=== PATIENT | female | born 1970 | race Caucasian/White ===

== ENCOUNTER 2017-01-13 14:54 | Emergency (ER) | payer BC ==
[2017-01-13 15:08] VITALS: BP 134/75; PULSE 72; TEMP 98.1; BMI 40.3
--- NOTE | 2017-01-13 15:40 | PDOC ---
History of Present Illness - General Chief Complaint: Headache Stated Complaint: EAR ACHE Time Seen by Provider: 01/13/17 15:24 History Source: Patient Exam Limitations: Language Barrier - History of Present Illness Initial Comments: 01/13/17 15: CC NASAL CONGESTION AND HEADACHE, 2NDARY TO SINUS CONGESTION 1 WEEK; LONG HX SAME WITH SINUS SURGERY NEXT WEEK Timing/Duration: reports: getting worse Severity: reports: severe Possible Cause: Yes: frequent episodes. No: smoke exposure Modifying Factors: improves with: other (NO BETTER TO ) Associated Symptoms: reports: nasal congestion, nasal drainage, sore throat. denies: cough, wheezing Past History - Past Medical History Allergies/Adverse Reactions: Allergies Allergy/AdvReac Type Severity Reaction Status Date / Time No Known Allergies Allergy Verified 01/13/17 15:04 Home Medications: Ambulatory Orders NK [No Known Home Medication] 01/13/17 Asthma: Yes GI Disorders: Yes (GERD) Other medical history: migraines - Family Disease History Family Disease History: Diabetes: Father, Heart Disease: Mother - Immunization History Immunization Up to Date: Yes - Psycho/Social/Smoking Cessation Hx Anxiety: No Suicidal Ideation: No Smoking Status: No Smoking History: Unknown if ever smoked Have you smoked in the past 12 months: No Number of Cigarettes Smoked Daily: 0 Information on smoking cessation initiated: No Hx Alcohol Use: No Drug/Substance Use Hx: No Substance Use Type: None Respiratory Specific PMHX - Complaint Specific PMHX Angina: No Bronchitis: Yes Pneumonia: No Pulmonary Embolus: No TB (Tuberculosis): No Review of Systems - Review of Systems Constitutional: Yes: Malaise. No: Chills, Fever HEENTM: Yes: Nose Congestion. No: Mouth Swelling Respiratory: Yes: Cough Cardiac (ROS): No: Symptoms Reported ABD/GI: No: Symptoms Reported : No: Symptoms Reported Musculoskeletal: No: Symptoms Reported *Physical Exam - Vital Signs Last Vital Signs Temp Pulse Resp BP Pulse Ox 98.1 F 72 18 134/75 100 01/13/17 15:04 01/13/17 15:04 01/13/17 15:04 01/13/17 15:04 01/13/17 15:04 - Physical Exam General Appearance: Yes: Appropriately Dressed, Apparent Distress HEENT: positive: Nasal Congestion, Rhinorrhea. negative: TMs Normal, Pharynx Normal, TM Bulging, TM Dull Neck: positive: Supple, Lymphadenopathy (R), Lymphadenopathy (L). negative: Tender, Rigid Respiratory/Chest: positive: Lungs Clear. negative: Chest Tender, Accessory Muscle Use, Wheezing Medical Decision Making - Medical Decision Making 01/13/17 15:39 WILL TREAT WITH AUGMENTIN ' ENCOURAGE USE OF NASAL STEROID/ FLONASE *DC/Admit/Observation/Transfer Diagnosis at time of Disposition: Chronic sinusitis Qualifiers: Sinusitis location: unspecified location Qualified Code(s): J32.9 - Chronic sinusitis, unspecified - Discharge Dispostion Disposition: HOME Condition at time of disposition: Stable Admit: No - Patient Instructions Additional Instructions: PLEASE KEEP APPOINTMET FOR SINUS SURGERY; SEE LOCAL MD THIS WEEK IF NO BETTER; USE FLONASE IN PAST; MOTRIN 400MG FOR PAIN
== END 2017-01-13 15:48 | disposition home or self-care (01) ==
LOC: JERFT 14:54
DX: J32.9 Chronic sinusitis, unspecified (principal)
CPT/HCPCS: 99281-25

== ENCOUNTER 2017-03-13 14:43 | Emergency (ER) | payer BC, OTHER ==
--- NOTE | 2017-03-13 15:07 | PDOC ---
History of Present Illness - General History Source: Patient Exam Limitations: No Limitations - History of Present Illness Initial Comments: 03/13/17 15:26 The patient is a 47 year old female with a PMHx of GERD, asthma who presents to the ED with low back pain since yesterday. The patient states that while at work , she lifted and moved a heavy box of magazines and immediately experienced sharp, stabbing pain in her back. She states the pain is intermittent. The pain is exacerbated by sitting or lying down, and alleviated by walking. She states that the pain wraps around her whole low back, and while she walks the pain radiates to the top of her legs, bilaterally. She reports that she took Aleve this morning with minimal relief. She reports she has had similar symptoms before, which was a strained muscle/spasm. She reports that she has had a disc herniation in the past, but the current pain feels different. She denies numbness, tingling, change in sensation. She denies fever, chills, nausea, vomiting, diarrhea. She denies chest pain, SOB. She denies urinary complaints. <Pauline Verma - Last Filed: 03/13/17 15:26> <Kirit Chaudhry - Last Filed: 03/13/17 15:48> - General Chief Complaint: Back Pain Stated Complaint: LOWER BACK PAIN Time Seen by Provider: 03/13/17 14:57 Past History <Pauline Verma - Last Filed: 03/13/17 15:26> - Past Medical History Asthma: Yes GI Disorders: Yes (GERD) - Family Disease History Family Disease History: Diabetes: Father, Heart Disease: Mother - Immunization History Immunization Up to Date: Yes - Psycho/Social/Smoking Cessation Hx Anxiety: No Suicidal Ideation: No Smoking Status: No Smoking History: Unknown if ever smoked Have you smoked in the past 12 months: No Number of Cigarettes Smoked Daily: 0 Hx Alcohol Use: No Drug/Substance Use Hx: No Substance Use Type: None <Kirit Chaudhry - Last Filed: 03/13/17 15:48> - Past Medical History Allergies/Adverse Reactions: Allergies Allergy/AdvReac Type Severity Reaction Status Date / Time No Known Allergies Allergy Verified 03/13/17 14:45 Home Medications: Ambulatory Orders Cyclobenzaprine HCl [Flexeril 10 mg] 10 mg PO TID #15 tablet 03/13/17 Levocetirizine Dihydrochloride 5 mg PO DAILY 03/13/17 Naproxen [Naprosyn] 375 mg PO BID #20 tablet 03/13/17 Omeprazole 20 mg PO DAILY 03/13/17 Ranitidine [Zantac -] 150 mg PO DAILY 03/13/17 Trauma Specific PMHX - Complaint Specific PMHX Back Injury: Yes (jan 12) <Kirit Chaudhry - Last Filed: 03/13/17 15:48> Review of Systems - Review of Systems Able to Perform ROS?: Yes Comments:: 03/13/17 15:27 CONSTITUTIONAL: Absent: fever, chills, diaphoresis, generalized weakness, malaise, loss of appetite HEENT: Absent: rhinorrhea, nasal congestion, throat pain, throat swelling, difficulty swallowing, mouth swelling, ear pain, eye pain, visual changes CARDIOVASCULAR: Absent: chest pain, syncope, palpitations, irregular heart rate, lightheadedness , peripheral edema RESPIRATORY: Absent: cough, shortness of breath, dyspnea with exertion, orthopnea, wheezing, stridor, hemoptysis GASTROINTESTINAL: Absent: abdominal pain, abdominal distension, nausea, vomiting, diarrhea, constipation, melena, hematochezia GENITOURINARY: Absent: dysuria, frequency, urgency, hesitancy, hematuria, flank pain, genital pain MUSCULOSKELETAL: Present: low back pain Absent: arthralgia, joint swelling SKIN: Absent: rash, itching, pallor HEMATOLOGIC/IMMUNOLOGIC: Absent: easy bleeding, easy bruising, lymphadenopathy, frequent infections ENDOCRINE: Absent: unexplained weight gain, unexplained weight loss, heat intolerance, cold intolerance NEUROLOGIC: Absent: headache, focal weakness or paresthesias, dizziness, unsteady gait, seizure, mental status changes, bladder or bowel incontinence PSYCHIATRIC: Absent: anxiety, depression, suicidal or homicidal ideation, hallucinations. 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 She has pain and stiffness today. No radicular symptoms. Normal neurologic exam Toradol administered with good relief. Pain is improved and the patient is more mobile. We'll continue on anti-inflammatory and muscle relaxant, rest at home, avoid sitting, and follow-up with back specialist if the pain persists. Fully ambulatory and in no significant pain or other discomfort upon discharge to follow-up as directed <Kirit Chaudhry - Last Filed: 03/13/17 15:48> *DC/Admit/Observation/Transfer - Attestations Scribe Attestion: 03/13/17 15:27 Documentation prepared by Pauline Verma, acting as medical record librarian for Kirit Sanabria MD. <Pauline Verma - Last Filed: 03/13/17 15:26> - Discharge Dispostion Admit: No <Kirit Chaudhry - Last Filed: 03/13/17 15:48> Diagnosis at time of Disposition: Low back strain Qualifiers: Encounter type: initial encounter Qualified Code(s): S39.012A - Strain of muscle, fascia and tendon of lower back, initial encounter - Discharge Dispostion Disposition: HOME Condition at time of disposition: Improved - Prescriptions Prescriptions: Cyclobenzaprine HCl [Flexeril 10 mg] 10 mg PO TID #15 tablet Naproxen [Naprosyn] 375 mg PO BID #20 tablet - Referrals Referrals: Spencer King MD [Staff Physician] - 1 week - Patient Instructions Printed Discharge Instructions: DI for Low Back Pain - Post Discharge Activity Work/School Note: Back to Work
[2017-03-13 15:23] VITALS: BP 123/65; PULSE 66; TEMP 98.4; BMI 40.3
[2017-03-13] MEDS ORDERED: KETOROLAC TROMETHAMINE 60 MG/2 ML VIAL ONE (15:25)
[2017-03-13] MEDS: KETOROLAC TROMETHAMINE 60 MG/2 ML VIAL IM ONE (15:28)
== END 2017-03-13 16:01 | disposition home or self-care (01) ==
LOC: FER 14:43
PROC: 3E0233Z Introduction of Anti-inflammatory into Muscle, Percutaneous Approach (ICD-10-PCS; principal; 2017-03-13)
DX: S39.012A Strain of muscle, fascia and tendon of lower back, initial encounter (principal); X50.0XXA Overexertion from strenuous movement or load, initial encounter; Y93.89 Activity, other specified; Y92.242 Post office as the place of occurrence of the external cause; Y99.0 Civilian activity done for income or pay; K21.9 Gastro-esophageal reflux disease without esophagitis; J45.909 Unspecified asthma, uncomplicated
CPT/HCPCS: 99283-25

== ENCOUNTER 2017-06-08 09:34 | Emergency (ER) | payer BC ==
[2017-06-08 09:40] VITALS: BP 121/79; PULSE 66; TEMP 98.2; BMI 40.3
--- NOTE | 2017-06-08 10:22 | PDOC ---
History of Present Illness - General Chief Complaint: Ear Problem Stated Complaint: EAR PROBLEM Time Seen by Provider: 06/08/17 10:10 History Source: Patient Exam Limitations: No Limitations - History of Present Illness Initial Comments: 06/08/17 11:42 47 yr female with c/o left sided facial tenderness with swelling and left ear pain. Pt has history of chronic sinusitus, states the pain is the same as previous . pt denies fever or chills. Associated Symptoms: reports: denies symptoms Past History - Past Medical History Allergies/Adverse Reactions: Allergies Allergy/AdvReac Type Severity Reaction Status Date / Time No Known Allergies Allergy Verified 06/08/17 09:37 Home Medications: Ambulatory Orders Levocetirizine Dihydrochloride 5 mg PO DAILY 03/13/17 Omeprazole 20 mg PO DAILY 03/13/17 Amox-Tr/K Cl [Augmentin - 875Mg Tablet] 1 tab PO BID #20 tablet 06/08/17 Asthma: Yes GI Disorders: Yes (GERD) Other medical history: sinus problems - Family Disease History Family Disease History: Diabetes: Father, Heart Disease: Mother - Immunization History Immunization Up to Date: Yes - Psycho/Social/Smoking Cessation Hx Anxiety: No Suicidal Ideation: No Smoking Status: No Smoking History: Unknown if ever smoked Have you smoked in the past 12 months: No Number of Cigarettes Smoked Daily: 0 Information on smoking cessation initiated: No Hx Alcohol Use: No Drug/Substance Use Hx: No Substance Use Type: None Review of Systems - Review of Systems Able to Perform ROS?: Yes Is the patient limited Syrian proficient: No Constitutional: No: Symptoms Reported HEENTM: Yes: See HPI Respiratory: No: Symptoms reported Cardiac (ROS): No: Symptoms Reported ABD/GI: No: Symptoms Reported *Physical Exam - Vital Signs Last Vital Signs Temp Pulse Resp BP Pulse Ox 98.2 F 66 18 121/79 100 06/08/17 09:38 06/08/17 09:38 06/08/17 09:38 06/08/17 09:38 06/08/17 09:38 - Physical Exam General Appearance: Yes: Nourished, Appropriately Dressed HEENT: positive: EOMI, LINDEN, TMs Normal, Nasal Congestion, Sinus Tenderness ( left side maxilary ) Neck: positive: Supple Respiratory/Chest: positive: Lungs Clear, Normal Breath Sounds Cardiovascular: positive: Regular Rhythm, Regular Rate Musculoskeletal: positive: Normal Inspection Extremity: positive: Normal Capillary Refill, Normal Inspection, Normal Range of Motion Integumentary: positive: Normal Color, Dry, Warm Neurologic: positive: Fully Oriented, Alert, Normal Mood/Affect, Normal Response , Motor Strength 04/04 Medical Decision Making - Medical Decision Making 06/08/17 11:46 cc: left ear pain with facial tenderness and swelling, nasal congestion will treat with Augmentin for 10 days pt states this has helped in the past. will folllow up with her ENT this week *DC/Admit/Observation/Transfer Diagnosis at time of Disposition: Sinusitis - Discharge Dispostion Disposition: HOME Condition at time of disposition: Stable - Prescriptions Prescriptions: Amox-Tr/K Cl [Augmentin - 875Mg Tablet] 1 tab PO BID #20 tablet - Referrals Referrals: STAFF,NOT ON [Primary Care Provider] - - Patient Instructions Additional Instructions: follow with your ENT this week take the medication as prescribed
== END 2017-06-08 10:24 | disposition home or self-care (01) ==
LOC: JERFT 09:34
DX: J32.0 Chronic maxillary sinusitis (principal)
CPT/HCPCS: 99281-25

== ENCOUNTER 2018-03-24 19:48 | Emergency (ER) | payer BC ==
[2018-03-24 20:07] VITALS: BP 129/64; PULSE 82; TEMP 98; BMI 40.3
[2018-03-24] MEDS ORDERED: ALBUTEROL SO4 2.5/IPRATROPIUM 0.5 INH SOL 3 ML VIAL.NEB. NEB ONE ×2 (20:07→20:20)
--- NOTE | 2018-03-24 20:07 | PDOC ---
Rapid Medical Evaluation Chief Complaint: Asthma Time Seen by Provider: 03/24/18 20:05 Medical Evaluation: Allergies Allergy/AdvReac Type Severity Reaction Status Date / Time No Known Allergies Allergy Verified 01/23/18 16:41 03/24/18 20:05 I have performed a brief in-person evaluation of this patient. The patient presents with a chief complaint of non productive coughing x 4 days with chest tightness States using pump with no relief. Denies fever or chills Pertinent physical exam finding are lungs clear bilaterally, no wheezing noted heart s1s 1 I have ordered the following: ekg ordered, neb ordered The patient will proceed to the ED for further evaluation.
[2018-03-24] MEDS ORDERED: predniSONE 20 MG TABLET (UD) PO ONE (20:34)
--- NOTE | 2018-03-24 20:40 | PDOC ---
History of Present Illness - General Chief Complaint: Asthma Stated Complaint: ASTHMA Time Seen by Provider: 03/24/18 20:05 History Source: Patient Past History - Past Medical History Allergies/Adverse Reactions: Allergies Allergy/AdvReac Type Severity Reaction Status Date / Time No Known Allergies Allergy Verified 01/23/18 16:41 Home Medications: Ambulatory Orders Prednisone [Deltasone] 20 mg PO DAILY #8 tablet 03/24/18 Asthma: Yes COPD: No GI Disorders: Yes (GERD) - Family Disease History Family Disease History: Diabetes: Father, Heart Disease: Mother - Immunization History Immunization Up to Date: Yes - Suicide/Smoking/Psychosocial Hx Smoking Status: No Smoking History: Never smoked Have you smoked in the past 12 months: No Number of Cigarettes Smoked Daily: 0 Information on smoking cessation initiated: No Hx Alcohol Use: No Drug/Substance Use Hx: No Substance Use Type: None Respiratory Specific PMHX - Complaint Specific PMHX Angina: No Bronchitis: Yes Pneumonia: No Pulmonary Embolus: No TB (Tuberculosis): No Review of Systems - Review of Systems Constitutional: No: Chills, Fever Respiratory: Yes: Cough, Shortness of Breath, Wheezing *Physical Exam - Vital Signs Last Vital Signs Temp Pulse Resp BP Pulse Ox 98.0 F 82 18 129/64 98 03/24/18 20:05 03/24/18 20:05 03/24/18 20:05 03/24/18 20:05 03/24/18 20:05 - Physical Exam General Appearance: Yes: Appropriately Dressed. No: Apparent Distress HEENT: positive: Normal Voice Neck: positive: Supple. negative: Lymphadenopathy (R), Lymphadenopathy (L) Respiratory/Chest: positive: Lungs Clear, Normal Breath Sounds. negative: Respiratory Distress Cardiovascular: positive: Regular Rate, S1, S2 Integumentary: positive: Dry, Warm Neurologic: positive: Fully Oriented, Alert, Normal Mood/Affect ED Treatment Course - Medications Given in the ED: ED Medications Discontinued Medications Generic Name Dose Route Start Last Admin Trade Name Freq PRN Reason Stop Dose Admin Albuterol/Ipratropium 1 amp 03/24/18 20:07 03/24/18 20:24 Duoneb - NEB 03/24/18 20:08 1 amp ONCE ONE Administration Medical Decision Making - Medical Decision Making 03/24/18 20:34 48-year-old female, history of asthma, no recent admissions and no history of intubations, uses pump and neb machine at home, here with dry cough with chest tightness for 4 days. No CP, wheezing, fever or chills. Using pump with no relief. Patient well-appearing and stable with clear lungs. Nebs and prednisone in progress, will reassess 03/24/18 21:06 Pt better w/ nebs. Chest/lungs remains clear. Able to ambulate without sob. Stable for dc w/ pred burst and pmd f/u *DC/Admit/Observation/Transfer Diagnosis at time of Disposition: Asthma flare Qualifiers: Asthma severity: mild Asthma persistence: unspecified Qualified Code(s): J45.901 - Unspecified asthma with (acute) exacerbation - Discharge Dispostion Disposition: HOME Condition at time of disposition: Improved - Prescriptions Prescriptions: Prednisone [Deltasone] 20 mg PO DAILY #8 tablet - Referrals - Patient Instructions Printed Discharge Instructions: Asthma -- Adult Additional Instructions: Take medications as directed and follow up with your PMD as needed - Post Discharge Activity Forms/Work/School Notes: Back to Work
[2018-03-24] MEDS ORDERED: predniSONE 20 MG TABLET (UD) ONE (20:50)
== END 2018-03-24 21:08 | disposition home or self-care (01) ==
LOC: JERFT 19:48
PROC: 3E0F7GC Introduction of Other Therapeutic Substance into Respiratory Tract, Via Natural or Artificial Opening (ICD-10-PCS; principal; 2018-03-24)
DX: J45.901 Unspecified asthma with (acute) exacerbation (principal)
CPT/HCPCS: 99281-25

== ENCOUNTER 2018-04-03 17:58 | Emergency (ER) | payer BC ==
[2018-04-03 18:23] VITALS: BP 127/55; PULSE 100; TEMP 98.9; BMI 40.3
[2018-04-03] MEDS ORDERED: ACETAMINOPHEN 500 MG TABLET (FP) PO ONE (18:42)
[2018-04-03] MEDS ORDERED: ACETAMINOPHEN 500 MG TABLET (FP) ONE (18:58)
--- NOTE | 2018-04-03 19:15 | PDOC ---
History of Present Illness - General History Source: Patient Exam Limitations: No Limitations - History of Present Illness Initial Comments: 04/03/18 19:33 The patient is a 48 year old female who presents to the emergency department complaining of right arm and right ankle pain since 330pm. 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 She reports landing on her right arm. She states she feels like she twisted her ankle, but denies hearing any popping or cracking. The patient denies loss of consciousness and head trauma. The patient denies chest pain, shortness of breath, headache, and dizziness. Denies fevers, chills, nausea, vomiting, diarrhea, and constipation. Denies dysuria, frequency, urgency, and hematuria. PAST MEDICAL HISTORY: GERD, migraines, asthma, left ankle fracture, finger fracture, and chronic sinusitis PAST SURGICAL HISTORY: Patient denies. FAMILY HISTORY: no pertinent history SOCIAL HISTORY: Pt lives with family and is employed. Occasional alcohol use. No reported cigarette or drug use. MEDICATIONS: reviewed ALLERGIES: As per nursing notes ROS General: No fevers or chills, no weakness, no weight loss HEENT: No change in vision. No sore throat,. No ear pain Cardiovascular: No chest pain or shortness of breath Respiratory: No cough, or wheezing. Gastrointestinal: no nausea, vomiting, diarrhea or constipation, No rectal bleeding Genitourinary: No dysuria, hematuria, or frequency Musculoskeletal: No joint or muscle pain or swelling Extremities: (+)Right arm pain. (+)Right ankle pain. Neurologic: No headache, vertigo, dizziness or loss of consciousness Psychiatric: nor depression Skin: No rashes or easy bruising Endocrine: no increased thirst or abnormal weight change Allergic: no skin or latex allergy All other systems reviewed and normal PE GENERAL: The patient is awake, alert, and fully oriented, in no acute distress. HEAD: Normal with no signs of trauma. EYES: Pupils equal, round and reactive to light, extraocular movements intact, sclera anicteric, conjunctiva clear. EXTREMITIES: (+) Small abrasion on right forearm, no bleeding. (+) Right ankle tenderness and swelling over lateral malleolus . (+) Mild tenderness over base of the fifth. Neurovascularly intact. NEUROLOGICAL: Normal speech, normal gait. PSYCH: Normal mood, normal affect. SKIN: Warm, Dry, normal turgor, no rashes or lesions noted. <Lindsey Abad - Last Filed: 04/03/18 19:33> - General History Source: Patient Exam Limitations: No Limitations - History of Present Illness Initial Comments: A portion of this note was documented by scribe services under my direction. I have reviewed the details of the note, within reason, and agree with the documentation. The case summary and management plan written by me. 04/03/18 19:38 Assessment and plan: This is a 40-year-old female who twisted her right ankle and scraped her right forearm. Patient has swelling of the lateral portion of the ankle but no deformity. Ankle and foot x-ray ordered Patient given pain medication Patient's forearm abrasion cleaned and Band-Aid applied it is superficial enough that it does not require anything more than a Band-Aid 04/03/18 19:55 Right ankle and foot x-ray no acute fracture dislocation or pathology ankle: Foot x-ray reviewed by me. Assessment and plan: This is a 48-year-old female who twisted her right ankle. 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 Patient x-rays negative for any fracture or acute pathology. Patient given air cast 04/03/18 20:04 Patient given off from work through of next week <Mignon Montanez I - Last Filed: 04/03/18 20:06> - General Chief Complaint: Injury Stated Complaint: RIGHT ARM & ANKLE INJURY Time Seen by Provider: 04/03/18 19:13 Past History <Lindsey Abad - Last Filed: 04/03/18 19:33> - Past Medical History Asthma: Yes COPD: No GI Disorders: Yes (GERD) Other medical history: FX LEFT ANKLE, FX FINGERS - Family Disease History Family Disease History: Diabetes: Father, Heart Disease: Mother - Immunization History Immunization Up to Date: Yes - Suicide/Smoking/Psychosocial Hx Smoking Status: No Smoking History: Never smoked Have you smoked in the past 12 months: No Number of Cigarettes Smoked Daily: 0 Hx Alcohol Use: Yes (OCCASIONAL) Drug/Substance Use Hx: No Substance Use Type: None <Mignon Montanez I - Last Filed: 04/03/18 20:06> - Past Medical History Allergies/Adverse Reactions: Allergies Allergy/AdvReac Type Severity Reaction Status Date / Time No Known Allergies Allergy Verified 04/03/18 18:10 Home Medications: Ambulatory Orders Prednisone [Deltasone] 20 mg PO DAILY #8 tablet 03/24/18 Albuterol Sulfate Inhaler - [Ventolin Hfa Inhaler -] 1 - 2 inh PO Q4H PRN Loratadine [Claritin] 10 mg PO DAILY 04/03/18 Omeprazole 40 mg PO DAILY 04/03/18 Ranitidine HCl [Zantac] 300 mg PO DAILY 04/03/18 Trauma Specific PMHX - Complaint Specific PMHX Back Injury: Yes (jan 12) <Mignon Montanez I - Last Filed: 04/03/18 20:06> *Physical Exam - Vital Signs Last Vital Signs Temp Pulse Resp BP Pulse Ox 98.9 F 100 H 18 127/55 98 04/03/18 17:59 04/03/18 17:59 04/03/18 17:59 04/03/18 17:59 04/03/18 17:59 <Lindsey Abad - Last Filed: 04/03/18 19:33> - Vital Signs Last Vital Signs Temp Pulse Resp BP Pulse Ox 98.9 F 100 H 18 127/55 98 04/03/18 17:59 04/03/18 17:59 04/03/18 17:59 04/03/18 17:59 04/03/18 17:59 <Mignon Montanez I - Last Filed: 04/03/18 20:06> ED Treatment Course - Medications Given in the ED: ED Medications Discontinued Medications Generic Name Dose Route Start Last Admin Trade Name Freq PRN Reason Stop Dose Admin Acetaminophen 1,000 mg 04/03/18 18:42 04/03/18 19:00 Tylenol - PO 04/03/18 18:43 1,000 mg ONCE ONE Administration <Lindsey Abad - Last Filed: 04/03/18 19:33> - Medications Given in the ED: ED Medications Discontinued Medications Generic Name Dose Route Start Last Admin Trade Name Freq PRN Reason Stop Dose Admin Acetaminophen 1,000 mg 04/03/18 18:42 04/03/18 19:00 Tylenol - PO 04/03/18 18:43 1,000 mg ONCE ONE Administration <Mignon Montanez I - Last Filed: 04/03/18 20:06> *DC/Admit/Observation/Transfer - Attestations Scribe Attestion: Documentation prepared by Lindsey Abad, acting as veterinary medical officer for Mignon Montanez MD. <Lindsey Abad - Last Filed: 04/03/18 19:33> - Discharge Dispostion Admit: No <Mignon Montanez I - Last Filed: 04/03/18 20:06> Diagnosis at time of Disposition: Moderate right ankle sprain Qualifiers: Encounter type: initial encounter Qualified Code(s): S93.401A - Sprain of unspecified ligament of right ankle, initial encounter Abrasion of right forearm Qualifiers: Encounter type: initial encounter Qualified Code(s): S50.811A - Abrasion of right forearm, initial encounter - Discharge Dispostion Disposition: HOME Condition at time of disposition: Good - Referrals Referrals: Adan Gonzalez MD [Staff Physician] - - Patient Instructions Additional Instructions: For the pain take ibuprofen or Aleve or Tylenol as directed by the bottle. Wear your air cast for comfort while awake you can take it off at night when you sleep or also for bathing or showering. Return to the emergency department immediately with ANY new, persistent or worsening symptoms. Continue any medications as previously prescribed by your physician. You should follow up with your primary doctor as soon as possible regarding today's emergency department visit. . Please make sure your doctor reviews the results of your emergency evaluation. Thank you for coming to the Emergency Department today for your care. It was a pleasure to see you today. Please note that your evaluation is INCOMPLETE until you follow-up with your doctor. - Post Discharge Activity Forms/Work/School Notes: Back to Work
[2018-04-03] MEDS ORDERED: DIPHTH,PERTUSS(ACELL),TET 0.5 ML DISP.SYRIN IM ONE (20:01)
== END 2018-04-03 20:12 | disposition home or self-care (01) ==
LOC: FER 17:58
PROC: 2W3QX1Z Immobilization of Right Lower Leg using Splint (ICD-10-PCS; principal; 2018-04-03)
DX: S93.401A Sprain of unspecified ligament of right ankle, initial encounter (principal); S50.811A Abrasion of right forearm, initial encounter; V82.6XXA Occupant of streetcar injured by fall from streetcar, initial encounter; Y93.89 Activity, other specified; Y92.410 Unspecified street and highway as the place of occurrence of the external cause
CPT/HCPCS: 73610-TC-RT-FY; 73630-TC-RT-FY; 90715; 99282-25

== ENCOUNTER 2018-07-31 23:55 | Emergency (ER) | payer BC ==
[2018-08-01 00:04] VITALS: BP 121/65; PULSE 88; TEMP 98.5; BMI 40.3
--- NOTE | 2018-08-01 00:06 | PDOC ---
History of Present Illness - General Chief Complaint: Edema Stated Complaint: SWOLLEN LEG Time Seen by Provider: 08/01/18 00:00 History Source: Patient Exam Limitations: No Limitations - History of Present Illness Initial Comments: 08/01/18 00:52 Mr Corado is a 48 yo F presenting to the ER with a complaint of left leg swelling This has been present for the past 4 days No associated fever, skin changes, rash, erythema. Patient actually denies pain to the calf or the foot. She notes the swelling comes and goes. 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 Patient denies recent travel. Patient denies chest pain, shortness of breath, palpitations, focal weakness or numbness. Patient denies prior episodes of this. Patient tells me that she had an echo approximately one year ago which demonstrated normal ejection fraction (I do not have those results available for review). She denies history of heart failure. PAST MEDICAL HISTORY: GERD, migraines, asthma, left ankle fracture, finger fracture, and chronic sinusitis PAST SURGICAL HISTORY: Patient denies. FAMILY HISTORY: non contributory SOCIAL HISTORY: Currently unemployed. Occasional alcohol use. No reported cigarette or drug use. MEDICATIONS: reviewed ALLERGIES: As per nursing notes ROS: GENERAL/CONSTITUTIONAL: No: fever, chills, weakness, loss of appetite. HEAD, EYES, EARS, NOSE AND THROAT: No: change in vision, ear pain, discharge, sore throat, throat swelling. CARDIOVASCULAR: No: chest pain, lightheadedness, palpitations, syncope RESPIRATORY: No: cough, shortness of breath, wheezing, hemoptysis, stridor. GASTROINTESTINAL: No: nausea, vomiting, diarrhea, abdominal cramping, rectal bleeding, constipation. GENITOURINARY: No: dysuria, hematuria, frequency, urgency, flank pain. MUSCULOSKELETAL: No: back pain, neck pain, joint pain, muscle swelling or pain SKIN: No: lesions, pallor, rash or easy bruising. NEUROLOGIC: No: headache, vertigo, paresthesias, weakness ENDOCRINE: No: unexplained weight gain or loss HEMATOLOGIC/LYMPHATIC: No: anemia, easy bleeding, swelling nodes. PE: GENERAL: The patient is in no acute distress. HEAD: Normal EYES: PERRLA, EOMI, sclera anicteric, conjunctiva clear. ENT: Ears normal, nares patent, oropharynx clear without exudates. Moist mucous membranes. NECK: Normal range of motion, supple LUNGS: Breath sounds equal, clear to auscultation bilaterally. HEART:Regular rate and rhythm, normal S1 and S2 without murmur ABDOMEN: Soft, nontender EXTREMITIES: Normal range of motion. left lower extremity slightly larger than the right, no pitting edema No calf tenderness No rashes Ann's sign negative NEUROLOGICAL: Cranial nerves II through XII grossly intact. Normal speech. No focal neurological deficits. MUSCULOSKELETAL: no deformities noted SKIN: Warm, Dry, normal turgor, no rashes or lesions noted. 08/01/18 01:33 Past History - Past Medical History Allergies/Adverse Reactions: Allergies Allergy/AdvReac Type Severity Reaction Status Date / Time No Known Allergies Allergy Verified 07/31/18 23:57 Home Medications: Ambulatory Orders Prednisone [Deltasone] 20 mg PO DAILY #8 tablet 03/24/18 Albuterol Sulfate Inhaler - [Ventolin Hfa Inhaler -] 1 - 2 inh PO Q4H PRN Loratadine [Claritin] 10 mg PO DAILY 04/03/18 Omeprazole 40 mg PO DAILY 04/03/18 Ranitidine HCl [Zantac] 300 mg PO DAILY 04/03/18 Asthma: Yes COPD: No GI Disorders: Yes (GERD) - Family Disease History Family Disease History: Diabetes: Father, Heart Disease: Mother - Immunization History Immunization Up to Date: Yes - Suicide/Smoking/Psychosocial Hx Smoking Status: No Smoking History: Never smoked Have you smoked in the past 12 months: No Number of Cigarettes Smoked Daily: 0 Information on smoking cessation initiated: No Hx Alcohol Use: No Drug/Substance Use Hx: No Substance Use Type: None *Physical Exam - Vital Signs Last Vital Signs Temp Pulse Resp BP Pulse Ox 98.5 F 88 18 121/65 95 07/31/18 23:57 07/31/18 23:57 07/31/18 23:57 07/31/18 23:57 07/31/18 23:57 Medical Decision Making - Medical Decision Making 08/01/18 01:38 Pt presents to the ER with a complaint of leg swelling She is concerned about DVT I doubt DVT Will do duplex No evidence on examination of arterial occlusion Doubt heart failure based on echo from last year and swelling limited to left side Suspect dependent edema Will ask pt to try leg elevation, compression stockings Pt to follow up with PMD within 2-3 business days Clinical Impression: lower extremity edema, initial presentation *DC/Admit/Observation/Transfer Diagnosis at time of Disposition: Lower extremity edema - Discharge Dispostion Disposition: HOME Condition at time of disposition: Stable Decision to Admit order: No - Referrals - Patient Instructions Printed Discharge Instructions: DI for Dependent Edema, DI for Peripheral Edema , Unilateral Additional Instructions: Ms. Corado Thank you for coming in to the ER today Please be sure to follow up with your primary care physician within 2-3 business days Please elevate your leg when you are sitting or in bed You can try to wear compression stocking as well Return to the ER for any other concerns or complaints - Post Discharge Activity
== END 2018-08-01 02:10 | disposition home or self-care (01) ==
LOC: FER 23:55
DX: M79.89 Other specified soft tissue disorders (principal)
CPT/HCPCS: 93971-TC; 99281-25; 99282-25

== ENCOUNTER 2018-11-05 11:21 | Emergency (ER) | payer BC ==
[2018-11-05 11:31] VITALS: BP 144/90; PULSE 78; TEMP 97.7; BMI 39.8
[2018-11-05] MEDS ORDERED: NAPROXEN 500 MG TABLET (FP) PO ONE (12:11)
--- NOTE | 2018-11-05 12:11 | PDOC ---
History of Present Illness - General Chief Complaint: Back Pain Stated Complaint: BACK PAIN Time Seen by Provider: 11/05/18 11:49 History Source: Patient Exam Limitations: No Limitations - History of Present Illness Initial Comments: 11/05/18 12:06 CHIEF COMPLAINT: Lower back pain HISTORY OF PRESENT ILLNESS:48-year-old woman past medical history with lower back pain presents emergency Department with left-sided lower back pain radiating down the back of her left leg. She denies any numbness or tingling to her lower extremities, continence of bladder or bowel, urinary retention, saddle anesthesia, foot drop or history of IV drug use or cancer. Patient states the pain improves with physical activity and worsens after extended periods of rest. REVIEW OF SYSTEMS: GENERAL: Afebrile, denies any weakness RESPIRATORY: No cough, wheezing, or hemoptysis. CARDIAC: No chest pain or shortness of breath MUSCULOSKELETAL: Pain to generalized lower back. No point tenderness. Pain worse on left than right. SKIN : No erythema, no bruising, no deformity. GI/: Denies any abdominal pain, no urinary difficulty, incontinence or urinary retention. RECTAL: Denies any difficulty this A.m. NEUROLOGICAL: Denies any numbness or tingling. No neurosensory deficits. PHYSICAL EXAM: GENERAL: The patient is awake, alert, and fully oriented, in no acute distress. RESPIRATORY: Lungs clear bilaterally, no rhonchi wheezes or crackles CARDIAC: S1-S2 audible, no murmur rub or gallop MUSCULOSKELETAL: Pain to generalized lower back, nonradiating, no tingling or sensory deficit. Less than 2 second cap refill, +2 pedal pulses. No spinal point tenderness. Normal reflexive and no deficits to sensation or strength. GI/: Abdomen soft, nontender, nondistended. No rebound tenderness. No masses palpable. RECTAL: Deferred patient with no neurological findings SKIN: Warm, Dry, normal turgor, no erythema, no edema no bruising. Past History - Past Medical History Allergies/Adverse Reactions: Allergies Allergy/AdvReac Type Severity Reaction Status Date / Time No Known Allergies Allergy Verified 11/05/18 11:27 Home Medications: Ambulatory Orders Albuterol Sulfate Inhaler - [Ventolin Hfa Inhaler -] 1 - 2 inh PO Q4H PRN Loratadine [Claritin] 10 mg PO DAILY 04/03/18 Omeprazole 40 mg PO DAILY 04/03/18 Ranitidine HCl [Zantac] 300 mg PO DAILY 04/03/18 Asthma: Yes COPD: No GI Disorders: Yes (GERD) - Family Disease History Family Disease History: Diabetes: Father, Heart Disease: Mother - Immunization History Immunization Up to Date: Yes - Suicide/Smoking/Psychosocial Hx Smoking Status: No Smoking History: Unknown if ever smoked Have you smoked in the past 12 months: No Number of Cigarettes Smoked Daily: 0 Hx Alcohol Use: No Drug/Substance Use Hx: No Substance Use Type: None Trauma Specific PMHX - Complaint Specific PMHX Back Injury: Yes (jan 12) *Physical Exam - Vital Signs Last Vital Signs Temp Pulse Resp BP Pulse Ox 97.7 F 78 18 144/90 98 11/05/18 11:29 11/05/18 11:29 11/05/18 11:29 11/05/18 11:29 11/05/18 11:29 Moderate Sedation - Procedure Monitoring Vital Signs: Procedure Monitoring Vital Signs Temperature 97.7 F 11/05/18 11:29 Pulse Rate 78 11/05/18 11:29 Respiratory Rate 18 11/05/18 11:29 Blood Pressure 144/90 11/05/18 11:29 O2 Sat by Pulse Oximetry (%) 98 11/05/18 11:29 Medical Decision Making - Medical Decision Making 11/05/18 12:08 A/P: 48-year-old woman with acute on chronic lower back pain No bony tenderness to C-spine or bones of the pelvis Able to perform straight leg raises without difficulty Able to ambulate with steady gait Neurovascular status intact Urinalysis, urine culture, urine , Naprosyn 11/05/18 14:01 Urinalysis reveals 4+ ketones, 1+ bilirubin 1+ protein. Negative for leuk esterase or nitrites. Patient's symptoms have improved with administration of Naprosyn. I will discharge the patient home to follow-up with her primary doctor as needed. Patient will be instructed to take Naprosyn for her back pain. I discussed the physical exam findings, ancillary test results and final diagnoses with the patient. I answered all of the patient's questions. The patient was satisfied with the care received and felt comfortable with the discharge plan and treatment plan. The patient will call their primary care physician within 24 hours to arrange follow-up and will return to the Emergency Department with any new, persistent or worsening symptoms. *DC/Admit/Observation/Transfer Diagnosis at time of Disposition: Radiculopathy of lumbar region - Discharge Dispostion Disposition: HOME Condition at time of disposition: Stable Decision to Admit order: No - Referrals Referrals: ON STAFF,NOT [Primary Care Provider] - - Patient Instructions Additional Instructions: Take naproxen as needed for pain. Follow manufacturers instructions for appropriate dosage. Warm moist heat applied to your back may help alleviate pain. Return to emergency department for discoloration of the foot, numbness or tingling to the foot, worsening pain, or any other concerns. Thank you very much for choosing us to provide your emergent healthcare needs. - Post Discharge Activity
[2018-11-05] MEDS ORDERED: NAPROXEN 500 MG TABLET (FP) ONE (12:24)
[2018-11-05 13:43] LABS: HCG,QUALITATIVE URINE Negative
[2018-11-05 13:51] LABS: PH,URINE 5.5 (5.0-8.0); URINE APPEARANCE Turbid; URINE BILIRUBIN 1+ (<2.0 mg/dL); URINE COLOR Yellow; URINE GLUCOSE (UA) Negative (NEGATIVE); URINE KETONE 4+ (NEGATIVE); URINE LEUK ESTERASE Negative (NEGATIVE); URINE NITRITE Negative (NEGATIVE); URINE PROTEIN 1+ (NEGATIVE); URINE UROBILINOGEN 0.2 mg/dL (0.2-1.0)
[2018-11-05 14:00] LABS: EPI CELLS FEW /HPF (FEW); URINE MUCUS RARE
[2018-11-05 14:01] LABS: AMORP URATES 3+ /hpf (NONE SEEN)
== END 2018-11-05 14:05 | disposition home or self-care (01) ==
LOC: JERFT 11:21
DX: M54.16 Radiculopathy, lumbar region (principal)
CPT/HCPCS: 81003; 81015; 84703; 87086; 99281-25

== ENCOUNTER 2018-11-16 08:29 | Emergency (ER) | payer BC ==
[2018-11-16 08:56] VITALS: BP 119/56; PULSE 74; TEMP 97.7; BMI 40.3
--- NOTE | 2018-11-16 09:42 | PDOC ---
History of Present Illness - General Chief Complaint: Cold Symptoms Stated Complaint: Cold Symptoms Time Seen by Provider: 11/16/18 08:55 History Source: Patient Exam Limitations: Clinical Condition - History of Present Illness Initial Comments: 11/16/18 09:39 Patient with no significant past medication present with complaint of cough, runny nose, nasal congestion, sinus pain and bilateral ear pressure for 2 days. Patient also reported mild sore throat. Patient denies fever, chills, nausea or vomiting. Timing/Duration: other (2 days) Past History - Past Medical History Allergies/Adverse Reactions: Allergies Allergy/AdvReac Type Severity Reaction Status Date / Time No Known Allergies Allergy Verified 11/05/18 11:27 Home Medications: Ambulatory Orders Albuterol Sulfate Inhaler - [Ventolin Hfa Inhaler -] 1 - 2 inh PO Q4H PRN Loratadine [Claritin] 10 mg PO DAILY 04/03/18 Omeprazole 40 mg PO DAILY 04/03/18 Ranitidine HCl [Zantac] 300 mg PO DAILY 04/03/18 Azithromycin [Zithromax Tri-Raf (3 DAYS) -] 500 mg PO DAILY #3 tablet 11/16/18 Ipratropium [place] 2 spray NS BID PRN #1 spray 11/16/18 Methylprednisolone [Medrol Dose Raf] 4 mg PO ASDIR #21 tablet 11/16/18 Asthma: Yes COPD: No GI Disorders: Yes (GERD) - Surgical History Gastric Stapling: No - Family Disease History Family Disease History: Diabetes: Father, Heart Disease: Mother - Immunization History Immunization Up to Date: Yes - Suicide/Smoking/Psychosocial Hx Smoking Status: No Smoking History: Never smoked Have you smoked in the past 12 months: No Number of Cigarettes Smoked Daily: 0 Information on smoking cessation initiated: No Hx Alcohol Use: No Drug/Substance Use Hx: No Substance Use Type: None Review of Systems - Review of Systems Able to Perform ROS?: Yes Is the patient limited Citizen [place] proficient: No Constitutional: No: Chills, Fever HEENTM: Yes: Symptoms Reported, See HPI, Nose Congestion, Throat Pain. No: Eye Pain, Blurred Vision, Tearing, Recent change in vision, Double Vision, Cataracts , Ear Pain, Ocular Prothesis, Ear Discharge, Nose Pain, Tinnitus, Nose Bleeding , Hearing Loss, Throat Swelling, Mouth Pain, Dental Problems, Difficulty Swallowing, Mouth Swelling, Other Respiratory: Yes: Symptoms reported, See HPI, Cough. No: Orthopnea, Shortness of Breath, SOB with Exertion, SOB at Rest, Stridor, Wheezing, Productive cough, Hemoptysis, Other Cardiac (ROS): No: Symptoms Reported, See HPI, Chest Pain, Edema, Irregular Heart Rate, Lightheadedness, Palpitations, Syncope, Chest Tightness, Other ABD/GI: No: Nausea, Vomiting All Other Systems: Reviewed and Negative *Physical Exam - Vital Signs Last Vital Signs Temp Pulse Resp BP Pulse Ox 97.7 F 74 18 119/56 L 97 11/16/18 08:54 11/16/18 08:54 11/16/18 08:54 11/16/18 08:54 11/16/18 08:54 - Physical Exam Comments: 11/16/18 09:41 GENERAL: Well developed, well nourished. Awake and alert. No acute distress. HEENT: Normocephalic, atraumatic. PERRLA, EOMI. No conjunctival pallor. Sclera are non-icteric. Moist mucous membranes. Oropharynx is clear. NECK: Supple. Full ROM. CARDIOVASCULAR: Regular rate and rhythm. No murmurs, rubs, or gallops. Distal pulses are 2+ and symmetric. PULMONARY: No evidence of respiratory distress. Lungs clear to auscultation bilaterally. No wheezing, rales or rhonchi. ABDOMINAL: Soft. Non-tender. Non-distended. No rebound or guarding. No organomegaly. Normoactive bowel sounds. MUSCULOSKELETAL Normal range of motion at all joints. EXTREMITIES: No cyanosis. No clubbing. No edema. No calf tenderness. SKIN: Warm and dry. Normal capillary refill. No rashes. No jaundice. NEUROLOGICAL: Alert, awake, appropriate. Gait is normal without ataxia. PSYCHIATRIC: Cooperative. Good eye contact. Appropriate mood General Appearance: Yes: Nourished, Appropriately Dressed. No: Apparent Distress Moderate Sedation - Procedure Monitoring Vital Signs: Procedure Monitoring Vital Signs Temperature 97.7 F 11/16/18 08:54 Pulse Rate 74 11/16/18 08:54 Respiratory Rate 18 11/16/18 08:54 Blood Pressure 119/56 L 11/16/18 08:54 O2 Sat by Pulse Oximetry (%) 97 11/16/18 08:54 Medical Decision Making - Medical Decision Making 11/16/18 09:41 Patient with no significant past medical history present with complaint of 2 day history of nasal congestion, runny nose, cough, sore throat and sinus pain. Medical exam unremarkable. Symptoms likely URI with sinusitis. Rapid strep ordered. Patient be discharged home with conservative management for viral URI and sinusitis if negative strep. 11/16/18 10:23 rapid strep neg. Patient stable for discharge with outpatient treatment for URI and sinusitis *DC/Admit/Observation/Transfer Diagnosis at time of Disposition: Sinusitis Upper respiratory infection Qualifiers: URI type: unspecified URI Qualified Code(s): J06.9 - Acute upper respiratory infection, unspecified - Discharge Dispostion Disposition: HOME Condition at time of disposition: Stable Decision to Admit order: No - Prescriptions Prescriptions: Azithromycin [Zithromax Tri-Raf (3 DAYS) -] 500 mg PO DAILY #3 tablet Ipratropium [place] 2 spray NS BID PRN #1 spray PRN Reason: nasal congestion Methylprednisolone [Medrol Dose Raf] 4 mg PO ASDIR #21 tablet - Referrals Referrals: Chip Argueta [Primary Care Provider] - - Patient Instructions Printed Discharge Instructions: DI for Sinusitis - Post Discharge Activity Forms/Work/School Notes: Back to Work
== END 2018-11-16 10:33 | disposition home or self-care (01) ==
LOC: JERFT 08:29
DX: J06.9 Acute upper respiratory infection, unspecified (principal); J32.9 Chronic sinusitis, unspecified
CPT/HCPCS: 87070; 87880; 99281-25

== ENCOUNTER 2018-12-09 17:21 | Emergency (ER) | payer BC ==
[2018-12-09 17:34] VITALS: BP 123/93; PULSE 85; TEMP 98.6; BMI 40.3
--- NOTE | 2018-12-09 17:34 | PDOC ---
Rapid Medical Evaluation Time Seen by Provider: 12/09/18 17:32 Medical Evaluation: Allergies Allergy/AdvReac Type Severity Reaction Status Date / Time No Known Allergies Allergy Verified 11/05/18 11:27 12/09/18 17:32 I have performed a brief in-person evaluation of this patient. The patient presents with a chief complaint of: HADLEY, cough, right ear pain, nasal congestion, SOB Pertinent physical exam findings: Lungs diminished bilaterally. I have ordered the following: eliza The patient will proceed to the ED for further evaluation. Discharge Disposition - Diagnosis Upper respiratory infection - Referrals - Patient Instructions - Post Discharge Activity
[2018-12-09] MEDS ORDERED: DEXAMETHASONE LIQUID 0.5 MG/5 ML 240 ML BULK BOTTLE PO ONE ×2 (17:51→18:17)
[2018-12-09] MEDS ORDERED: ALBUTEROL SO4 2.5/IPRATROPIUM 0.5 INH SOL 3 ML VIAL.NEB. NEB ONE (17:52)
[2018-12-09] MEDS ORDERED: DEXAMETHASONE SOD PHOSPHATE 10 MG/1 ML VIAL ONE (17:52)
--- NOTE | 2018-12-09 17:58 | PDOC ---
History of Present Illness - General Chief Complaint: Asthma Stated Complaint: ASTHMA/HEADACHE Time Seen by Provider: 12/09/18 17:32 - History of Present Illness Initial Comments: 12/09/18 17:54 48 y/o F with PMH significant for asthma, GERD, and seasonal allergies presents for evaluation of sinus pressure, B ear pain, and cough x1 month, no fever/ Past History - Past Medical History Allergies/Adverse Reactions: Allergies Allergy/AdvReac Type Severity Reaction Status Date / Time No Known Allergies Allergy Verified 12/09/18 17:34 Home Medications: Ambulatory Orders Albuterol Sulfate Inhaler - [Ventolin Hfa Inhaler -] 1 - 2 inh PO Q4H PRN Omeprazole 40 mg PO DAILY 04/03/18 Ranitidine HCl [Zantac] 300 mg PO DAILY 04/03/18 Asthma: Yes COPD: No GI Disorders: Yes (GERD) - Surgical History Gastric Stapling: No - Family Disease History Family Disease History: Diabetes: Father, Heart Disease: Mother - Immunization History Immunization Up to Date: Yes - Suicide/Smoking/Psychosocial Hx Smoking Status: No Smoking History: Never smoked Have you smoked in the past 12 months: No Number of Cigarettes Smoked Daily: 0 Information on smoking cessation initiated: No Hx Alcohol Use: No Drug/Substance Use Hx: No Substance Use Type: None Review of Systems - Review of Systems Constitutional: No: Fever HEENTM: Yes: Nose Congestion Respiratory: Yes: Cough *Physical Exam - Vital Signs Last Vital Signs Temp Pulse Resp BP Pulse Ox 98.6 F 85 18 123/93 97 12/09/18 17:33 12/09/18 17:33 12/09/18 17:33 12/09/18 17:33 12/09/18 17:33 - Physical Exam Comments: 12/09/18 17:55 HEAD: NC/AT EYES: Conjuntiva clear Ears: Canals and TM's normal NOSE: Clear rhinorrhea with injected turbinates THROAT: Moist mucous membrances, oral pharanx clear, uvula midline NECK: Supple without adenopathy CARDIAC: S1 S2 LUNGS: CTA Full and Equal breath sounds ABDOMEN: Soft NT ND MS: Full ROM in all joints without edema NEUROLOGIC: No gross sensory or motor deficits, NVID SKIN: Normal color and temperature no lesions or rashes Moderate Sedation - Procedure Monitoring Vital Signs: Procedure Monitoring Vital Signs Temperature 98.6 F 12/09/18 17:33 Pulse Rate 85 12/09/18 17:33 Respiratory Rate 18 12/09/18 17:33 Blood Pressure 123/93 12/09/18 17:33 O2 Sat by Pulse Oximetry (%) 97 12/09/18 17:33 *DC/Admit/Observation/Transfer Diagnosis at time of Disposition: Upper respiratory infection, Sinusitis - Discharge Dispostion Disposition: HOME Condition at time of disposition: Improved Decision to Admit order: No - Referrals Referrals: Chip Conway MD [Primary Care Provider] - Abhinav Franco MD [Staff Physician] - - Patient Instructions Printed Discharge Instructions: Sinusitis, DI for Sinusitis Additional Instructions: Please take the antibiotics as directed and finish the course, use the nasal spray as directed. Follow up with Ear, Nose and Throat doctor in 1-2 days for futher evaluation and treatment options. Return to the Emergency Room should symptoms worsen or go unresolved. - Post Discharge Activity Forms/Work/School Notes: Back to Work
[2018-12-09] MEDS: ALBUTEROL SO4 2.5/IPRATROPIUM 0.5 INH SOL 3 ML VIAL.NEB. NEB SCH ×2 (18:16→18:41)
== END 2018-12-09 18:42 | disposition home or self-care (01) ==
LOC: JERFT 17:21
DX: J01.90 Acute sinusitis, unspecified (principal); J06.9 Acute upper respiratory infection, unspecified
CPT/HCPCS: 99281-25

== ENCOUNTER 2019-01-04 18:09 | Emergency (ER) | payer BC | END 2019-01-04 20:52 | disposition home or self-care (01) | LOC: FER 18:09 ==

== ENCOUNTER 2019-01-26 14:52 | Emergency (ER) | payer BC ==
--- NOTE | 2019-01-26 14:57 | PDOC ---
History of Present Illness - General Chief Complaint: Urinary Problem Stated Complaint: pain while urination Time Seen by Provider: 01/26/19 14:57 - History of Present Illness Initial Comments: 48yo F with PMH of GERD and asthma presenting with dysuria and back pain. Patient states she came to the ED on 01/04/19 for back pain and was told she "might have a kidney stone because of blood in the urine." She returns today because six days ago she started experiencing intermittent dysuria, hematuria, frequency, and urgency. Patient reports that her back pain is similar to what she had when she presented a couple weeks ago. It is intermittent and alleviated with tylenol and motrin. She has had a UTI in the past, while she was with her daughter more than ten years ago. Patient denies ever having a kidney stone and has never seen a urologist. Denies fevers, chills, chest pain, or shortness of breath. PCP: Aureliano Antoine Past History - Past Medical History Allergies/Adverse Reactions: Allergies Allergy/AdvReac Type Severity Reaction Status Date / Time No Known Allergies Allergy Verified 01/04/19 18:11 Home Medications: Ambulatory Orders Albuterol Sulfate Inhaler - [Ventolin Hfa Inhaler -] 1 - 2 inh PO Q4H PRN Omeprazole 40 mg PO DAILY 04/03/18 Loratadine [Claritin] 10 mg PO DAILY 01/04/19 Cephalexin [Keflex] 500 mg PO BID #28 capsule 01/26/19 Asthma: Yes COPD: No GI Disorders: Yes (GERD) - Surgical History Gastric Stapling: No - Family Disease History Family Disease History: Diabetes: Father, Heart Disease: Mother - Immunization History Immunization Up to Date: Yes - Suicide/Smoking/Psychosocial Hx Smoking Status: No Smoking History: Never smoked Have you smoked in the past 12 months: No Number of Cigarettes Smoked Daily: 0 Hx Alcohol Use: No Drug/Substance Use Hx: No Substance Use Type: None Review of Systems - Review of Systems Comments:: Constitutional: no fever, no chills HEENT: no throat pain, no dysphagia Cardiovascular: no chest pain, no palpitations Respiratory: no cough, no shortness of breath Gastrointestinal: no nausea, no vomiting Genitourinary: +dysuria, +frequency Musculoskeletal: no myalgia, +back pain Skin: no rash, no itching Neurologic: no headache, no dizziness *Physical Exam - Physical Exam Comments: General: Awake, alert, and fully oriented, in no acute distress Head: No signs of trauma Eyes: EOMI, sclera anicteric ENT: Moist mucus membranes Neck: Normal ROM, supple Lungs: Lungs clear, Normal breath sounds Cardio: Regular rhythm, S1 and S2 present Abdomen: Slightly tender to palpation in suprapubic region. Soft, nondistended. No guarding, no rebound, no masses. R. sided back pain overlying Extremities: Normal range of motion, Distal pulses present SKIN: Warm, Dry, normal turgor Neurologic: Cranial nerves II through XII grossly intact. Normal speec Medical Decision Making - Medical Decision Making 48yo F with PMH of GERD and asthma presenting with dysuria and back pain. DDX including but not limited to UTI, pyelonephritis, kidney stone, cystitis UA positive for infection with 1+LE and 40-60 WBC's Lumbar Radiograph from 01/04 without acute pathology Back pain seems more consistent with MSK pain, but may be early pyelonephritis. Covering with Keflex 500mg BID x 14 days Patient discharged 01/26/19 16:53 *DC/Admit/Observation/Transfer Diagnosis at time of Disposition: UTI (urinary tract infection) - Discharge Dispostion Disposition: HOME Condition at time of disposition: Stable - Prescriptions Prescriptions: Cephalexin [Keflex] 500 mg PO BID #28 capsule - Referrals - Patient Instructions Printed Discharge Instructions: DI for Urinary Tract Infection (UTI) Additional Instructions: You came into the ED for pain when you urinate. Urinalysis shows you have a urinary tract infection. Antibiotics prescription has been sent to your pharmacy. Follow up with your primary care physician in one week to discuss this ED visit and for further evaluation of your symptoms. Your care is not complete until you do so. Call and make an appointment. Immediate medical attention is required if you experience: you develop high fevers, chills, persistent vomiting, stop urinating, or any new or concerning symptoms.If you think you have an emergency, call for medical help right away. - Post Discharge Activity Forms/Work/School Notes: Back to Work
[2019-01-26 14:58] VITALS: BP 138/73; PULSE 89; TEMP 98.4; BMI 40.1
[2019-01-26 15:16] LABS: URINE APPEARANCE Clear; URINE BILIRUBIN Negative (NEGATIVE); URINE COLOR Amber; URINE GLUCOSE (UA) Negative (NEGATIVE); URINE KETONE Trace (NEGATIVE); URINE LEUK ESTERASE 1+ (NEGATIVE); URINE NITRITE Negative (NEGATIVE); URINE PROTEIN Negative (NEGATIVE); URINE UROBILINOGEN 0.2 (0.2-1.0)
[2019-01-26 15:35] LABS: EPI CELLS FEW /HPF; URINE BACTERIA 3+ /hpf (NEGATIVE); URINE WBC 40-60 (0-5)
--- NOTE | 2019-01-26 15:38 | PDOC ---
Attending Attestation - Resident Resident Name: Bre Ayoub - ED Attending Attestation I have performed the following: I have examined & evaluated the patient, The case was reviewed & discussed with the resident, I agree w/resident's findings & plan, Exceptions are as noted - HPI HPI: 01/26/19 16:13 Reviewed Residents HPI - Physicial Exam PE: 01/26/19 16:13 Reviewed Residents PE - Medical Decision Making 01/26/19 16:13 History examination consistent with UTI we'll treat with 14 day course of Keflex in case of early Quang given some mild low back discomfort She will return to ED for any fever severe worsening symptoms vomiting or for any concerns.
== END 2019-01-26 16:19 | disposition home or self-care (01) ==
LOC: FER 14:52
DX: N39.0 Urinary tract infection, site not specified (principal); J45.909 Unspecified asthma, uncomplicated; K21.9 Gastro-esophageal reflux disease without esophagitis
CPT/HCPCS: 81003; 81015; 87086; 99282-25

== ENCOUNTER 2019-02-12 09:34 | Emergency (ER) | payer BC ==
[2019-02-12 10:00] VITALS: BP 120/6; PULSE 83; TEMP 98.4; BMI 40.3
--- NOTE | 2019-02-12 10:59 | PDOC ---
History of Present Illness - General Chief Complaint: Ear Problem Stated Complaint: HEADACHE EAR PAIN Time Seen by Provider: 02/12/19 10:38 History Source: Patient Exam Limitations: No Limitations - History of Present Illness Initial Comments: 02/12/19 10:55 Came for evaluation of recurrent sinus pain, thick yellow mucus from nose, and concerns about recurrent sinus infection. Her private physician/ENT doctor is out of the [place] and unable to obtain appointment. States has used all of her [id number] medications but is progressively worsened. Timing/Duration: unsure, 1 week Severity: moderate Modifying Factors: improves with: medication Associated Symptoms: reports: denies symptoms Past History - Travel Traveled outside of the country in the last 30 days: No Close contact w/someone who was outside of country & ill: No - Past Medical History Allergies/Adverse Reactions: Allergies Allergy/AdvReac Type Severity Reaction Status Date / Time No Known Allergies Allergy Verified 02/12/19 09:58 Home Medications: Ambulatory Orders Albuterol Sulfate Inhaler - [Ventolin Hfa Inhaler -] 1 - 2 inh PO Q4H PRN Omeprazole 40 mg PO DAILY 04/03/18 Loratadine [Claritin] 10 mg PO DAILY 01/04/19 Cephalexin [Keflex] 500 mg PO BID #28 capsule 01/26/19 Amox-Tr/K Cl [Augmentin 875Mg Tablet] 1 tab PO BID #20 tablet 02/12/19 Asthma: Yes COPD: No GI Disorders: Yes (GERD) - Surgical History Gastric Stapling: No - Family Disease History Family Disease History: Diabetes: Father, Heart Disease: Mother - Immunization History Immunization Up to Date: Yes - Suicide/Smoking/Psychosocial Hx Smoking Status: No Smoking History: Never smoked Have you smoked in the past 12 months: No Number of Cigarettes Smoked Daily: 0 Hx Alcohol Use: No Drug/Substance Use Hx: No Substance Use Type: None Review of Systems - Review of Systems Able to Perform ROS?: Yes Is the patient limited Maori proficient: Yes Constitutional: Yes: Symptoms Reported, See HPI, Fever, Malaise HEENTM: Yes: Symptoms Reported, See HPI, Eye Pain, Ear Pain (congestion), Nose Congestion (thick yellow ) Respiratory: Yes: See HPI. No: Symptoms reported ABD/GI: No: Symptoms Reported Neurological: Yes: Symptoms reported, See HPI, Headache (frontal and ethmoid ) *Physical Exam - Vital Signs Last Vital Signs Temp Pulse Resp BP Pulse Ox 98.4 F 83 120/6 L 99 02/12/19 09:50 02/12/19 09:50 02/12/19 09:50 02/12/19 09:50 - Physical Exam General Appearance: Yes: Nourished, Appropriately Dressed, Apparent Distress, Moderate Distress HEENT: positive: LINDEN, TMs Normal (bulging but landmarks easily visualized, significant congestion), Pharynx Normal, Rhinorrhea, Sinus Tenderness ( tenderness and fullness to frontal ethmoid sinuses). negative: Normal ENT Inspection Neck: positive: Supple. negative: Tender Respiratory/Chest: positive: Lungs Clear Musculoskeletal: positive: Normal Inspection Extremity: positive: Normal Capillary Refill Neurologic: positive: soap boiler II-XII NML intact, Fully Oriented, Alert, Normal Mood/ Affect, Normal Response, Motor Strength 5/5 Moderate Sedation - Procedure Monitoring Vital Signs: Procedure Monitoring Vital Signs Temperature 98.4 F 02/12/19 09:50 Pulse Rate 83 02/12/19 09:50 Respiratory Rate Blood Pressure 120/6 L 02/12/19 09:50 O2 Sat by Pulse Oximetry (%) 99 02/12/19 09:50 *DC/Admit/Observation/Transfer Diagnosis at time of Disposition: Sinusitis - Discharge Dispostion Disposition: HOME Condition at time of disposition: Stable Decision to Admit order: No - Prescriptions Prescriptions: Amox-Tr/K Cl [Augmentin 875Mg Tablet] 1 tab PO BID #20 tablet - Referrals - Patient Instructions Printed Discharge Instructions: DI for Sinusitis Additional Instructions: Rest, drink lots of fluids: Teas, water, soups Saltwater gargles. Consider humidifier in room at night Steamy showers/seem to face break up mucus Avoid contact with allergens, exposure to pollens, close windows on a windy day Lots of handwashing and good hygiene Continue [id number]-[id number] medications for symptomatic relief- may use allergic eyedrops for itching I Continue antihistamines daily until pollen season is over; Zyrtec, Claritin, Nataliya during the daytime and Benadryl at nighttime as will make sleepy Tylenol or Motrin for fever and pain Augmentin as prescribed Followup with private physician in one to 2 days as needed Consider following up with an behavioral health consultant/supervisor electron tube processing for skin testing and possible allergy shots Return to emergency department for worsened symptoms, fevers, dehydration - Post Discharge Activity Forms/Work/School Notes: Back to Work
== END 2019-02-12 11:04 | disposition home or self-care (01) ==
LOC: JER 09:34
DX: J32.9 Chronic sinusitis, unspecified (principal)
CPT/HCPCS: 99281-25

== ENCOUNTER 2019-03-26 08:59 | Emergency (ER) | payer BC ==
[2019-03-26 09:07] VITALS: BP 143/87; PULSE 76; TEMP 97.9; BMI 40.3
[2019-03-26] MEDS ORDERED: predniSONE 20 MG TABLET (UD) PO ONE (10:09)
--- NOTE | 2019-03-26 10:09 | PDOC ---
History of Present Illness - General Chief Complaint: Asthma Stated Complaint: ASTHMA Time Seen by Provider: 03/26/19 09:53 History Source: Patient Exam Limitations: No Limitations - History of Present Illness Initial Comments: 03/26/19 10:17 HPI 49 YOF with h/o GERD, Asthma, carpal tunnel presenting with nonproductive cough beginning yesterday, triggered by the rain and seasonal allergies. she also visited her yesterday, who is currently hospitalized. she admits to chest tightness, worse with coughing, and taking deep breaths. she took her albuterol inhaler this morning at 7AM, with some relief. she tried to use her nebulizer machine, but it "crumped out." no ICU stays or hospitalizations. compliant with her medications Denies fever, chills, nasal congestion, chest pain, SOB, palpitation, dizziness , weakness, N, V, D, abdominal pain, leg swelling, No sick contacts or travel. No new changes in medications. Allergies: None Past Medical History: GERD, asthma, carpal tunnel Social history: Lives with family. No tobacco, ETOH or drug use. Surgical history: none Meds: as documented in EMR Review of systems Constitutional: no fevers or chills. HEENT: no headache or dizziness. No congestion. no sore throat/ear pain. no difficulty swallowing. CVS: no cp or syncope. +chest tightness Resp: +sob. +cough. Gastrointestinal: no abdominal pain, nausea or vomiting. MUSCULOSKELETAL: No joint pain and swelling. No neck or back pain. SKIN: no redness or skin changes, no discharge, no rash. No wounds. Hematologic: no easy bruising/bleeding. NEUROLOGIC: No headache, dizziness, LOC or altered mental status. No weakness, numbness or tingling. Psych: no anxiety or depression Allergic/Immunologic: +seasonal allergies All other systems reviewed and negative, or as documented in HPI. Physical exam: General: Well appearing, awake and alert, NAD. speaking clear, full sentences. HEENT: NCAT, PERRL, EOMI, clear conjunctiva, anicteric, moist mucus membranes, clear oropharynx, no oral lesions.. Neck: neck supple, FROM Resp: CTAB, no wheezing, no respiratory distress; +coughing with inspiration and expiration, prolonged expiratory phase. CVS: RRR, no murmurs, 2+ peripheral pulses throughout, no peripheral edema Abdomen: soft, NTND, no peritoneal signs. Back: nontender, normal inspection and ROM MSK: no edema, DURAN x4, ROM intact. No clubbing or cyanosis. normal bulk and tone. Neuro: alert Skin: warm and well perfused, cap refill <2 sec, normal color 03/26/19 10:29 Past History - Past Medical History Allergies/Adverse Reactions: Allergies Allergy/AdvReac Type Severity Reaction Status Date / Time No Known Allergies Allergy Verified 03/26/19 09:03 Home Medications: Ambulatory Orders Albuterol Sulfate Inhaler - [Ventolin Hfa Inhaler -] 1 - 2 inh PO Q4H PRN Omeprazole 40 mg PO DAILY 04/03/18 Loratadine [Claritin] 10 mg PO DAILY 01/04/19 Cephalexin [Keflex] 500 mg PO BID #28 capsule 01/26/19 Amox-Tr/K Cl [Augmentin 875Mg Tablet] 1 tab PO BID #20 tablet 02/12/19 Albuterol 0.083% Nebulizer Dayana [Ventolin 0.083% Nebulizer Soln -] 1 neb NEB Q4H PRN #50 vial 03/26/19 Nebulizer [Aeroeclipse II] 1 each MC PRN PRN #1 each 03/26/19 Prednisone [Prednisone 50 MG TABLETS] 50 mg PO DAILY #3 tablet 03/26/19 Asthma: Yes COPD: No GI Disorders: Yes (GERD) - Surgical History Gastric Stapling: No - Family Disease History Family Disease History: Diabetes: Father, Heart Disease: Mother - Immunization History Immunization Up to Date: Yes - Suicide/Smoking/Psychosocial Hx Smoking Status: No Smoking History: Never smoked Have you smoked in the past 12 months: No Number of Cigarettes Smoked Daily: 0 Hx Alcohol Use: No Drug/Substance Use Hx: No Substance Use Type: None Respiratory Specific PMHX - Complaint Specific PMHX Angina: No Bronchitis: Yes Pneumonia: No Pulmonary Embolus: No TB (Tuberculosis): No *Physical Exam - Vital Signs Last Vital Signs Temp Pulse Resp BP Pulse Ox 97.9 F 76 18 143/87 97 03/26/19 09:04 03/26/19 09:04 03/26/19 09:04 03/26/19 09:04 03/26/19 09:04 Medical Decision Making - Medical Decision Making 03/26/19 10:30 hpi as documented VS reviewed, no hypoxia or tachypnea, speaking full sentences ddx. asthma, viral syndrome, allergies, allergy induced asthma, pneumonia, pleurisy. doubt PE, no h/o DVT/PE or risk factors to suggest so. doubt cardiac/ ACS, no cp CXR clear, no e/o infiltrate or effusion or edema. REASSESSMENT: Patient seen and reassessed s/p duonebs x3, PO prednisone. Discussed results w/ patient. cough improved, no respiratory distress. Vital signs wnl. Patient able to speak in full sentences. Discussed the use of controller medications. Will dc home w/ PMD followup and strict return precautions. rx meds including nebulizer machine and ampules, instructions on use discussed and provided. Rx meds including short steroid course and albuterol inhaler Q4-6 hr as needed for cough/wheezing/sob and asthma sx. Warning signs of return, or frequent albuterol use <2 hr, respiratory distress, dehydration, chest pain, fever or infection or worsening sx as such. 03/26/19 10:51 03/26/19 11:11 *DC/Admit/Observation/Transfer Diagnosis at time of Disposition: Seasonal allergies, Asthma - Discharge Dispostion Disposition: HOME Condition at time of disposition: Improved Decision to Admit order: No - Prescriptions Prescriptions: Albuterol 0.083% Nebulizer Dayana [Ventolin 0.083% Nebulizer Soln -] 1 neb NEB Q4H PRN #50 vial PRN Reason: Cough Nebulizer [Aeroeclipse II] 1 each MC PRN PRN #1 each PRN Reason: Asthma Prednisone [Prednisone 50 MG TABLETS] 50 mg PO DAILY #3 tablet - Referrals Referrals: Chip Conway MD [Staff Physician] - - Patient Instructions Printed Discharge Instructions: Allergic Rhinitis, DI for Asthma -- Adult, Diet High in Fruits and Vegetables May Reduce Asthma Exacerbations Additional Instructions: Home Instructions: Take medicines as directed by your caregiver. Visit your PMD if: You have wheezing, shortness of breath, or a cough even if taking medicine to prevent attacks. You have thickening of sputum. Your sputum changes from clear or white to yellow, green, shoemaker, or bloody. You have any problems that may be related to the medicines you are taking (such as a rash, itching, swelling, or trouble breathing). Visit /return to the emergency department if you develop persistent or worsening symptoms as such, despite the course of treatment with prescribed medications: You are short of breath even at rest or when doing very little physical activity. You develop difficulty eating, drinking, or talking due to asthma symptoms. You have chest pain or you feel that your heart is beating fast. You are lightheaded, dizzy, faint or have bluish lips or fingernails. You have a fever (>100.4) or persistent symptoms for more than 2-3 days or symptoms suddenly get worse. You seem to be getting worse and are unresponsive to treatment during an asthma attack. For more information on Asthma please visit the [employer]'s Website at: [email or web address] Otherwise, Please follow up with your primary care doctor within 2 days. Please fill the prescription for prednisone and take as directed. Please use the albuterol inhaler, 2 puffs every 4-6 hours as needed for 2 days and then as needed after that. Remember, technique is important: shake the inhaler, insert into spacer, breath out fully, then pump the inhaler and take several slow deep breaths through the spacer aerochamber with your mouth. Always use the spacer aerochamber whenever you use the inhaler. Please take all of your other medications as previously prescribed. If you have any worsening wheezing, shortness of breath, chest pain, fever, chills return to the ED. - Post Discharge Activity Forms/Work/School Notes: Back to Work
[2019-03-26] MEDS ORDERED: predniSONE 20 MG TABLET (UD) ONE (11:11)
[2019-03-26] MEDS ORDERED: ALBUTEROL SO4 0.083% IH SOL 2.5 MG/3 ML VIAL.NEB. NEB ONE ×2 (11:11→11:47)
[2019-03-26] MEDS: ALBUTEROL SO4 0.083% IH SOL 2.5 MG/3 ML VIAL.NEB. NEB SCH ×3 (11:35→11:38)
== END 2019-03-26 12:04 | disposition home or self-care (01) ==
LOC: JER 08:59
PROC: 3E0F7GC Introduction of Other Therapeutic Substance into Respiratory Tract, Via Natural or Artificial Opening (ICD-10-PCS; principal; 2019-03-26)
DX: J30.2 Other seasonal allergic rhinitis (principal); J45.909 Unspecified asthma, uncomplicated; K21.9 Gastro-esophageal reflux disease without esophagitis
CPT/HCPCS: 71046-TC-FY; 99281-25

== ENCOUNTER 2021-07-12 18:15 | Emergency (ER) | payer BC ==
[2021-07-13 08:07] LABS: SARS-CoV-2 NAA Not Detected (Not Detected)
== END 2021-07-12 18:58 | disposition home or self-care (01) ==
LOC: JVIRT 18:15
DX: Z11.52 Encounter for screening for COVID-19 (principal)
CPT/HCPCS: C9803; Q3014-GT; U0003; U0005

== ENCOUNTER 2021-07-19 12:20 | Emergency (ER) | payer BC ==
[2021-07-20 16:08] LABS: SARS-CoV-2 NAA Not Detected (Not Detected)
== END 2021-07-19 12:46 | disposition home or self-care (01) ==
LOC: JVIRT 12:20
DX: R51.9 Headache, unspecified (principal); R09.81 Nasal congestion; Z20.822 Contact with and (suspected) exposure to COVID-19
CPT/HCPCS: C9803; Q3014-GT; U0003; U0005

== ENCOUNTER 2021-08-03 14:34 | Emergency (ER) | payer BC | END 2021-08-03 17:57 | disposition home or self-care (01) | LOC: JVIRT 14:34 | DX: Z11.52 Encounter for screening for COVID-19 (principal) | CPT/HCPCS: C9803; Q3014-GT; U0003; U0005 ==

== ENCOUNTER 2024-01-23 12:11 | Emergency (ER) | payer BC ==
[2024-01-23] MEDS ORDERED: predniSONE 20 MG TABLET (UD) ONE (12:19)
[2024-01-23] MEDS ORDERED: ALBUTEROL SO4 2.5/IPRATROPIUM 0.5 INH SOL 3 ML VIAL.NEB. NEB ONE (12:19)
[2024-01-23] MEDS: ALBUTEROL SO4 2.5/IPRATROPIUM 0.5 INH SOL 3 ML VIAL.NEB. NEB ONE (12:25)
[2024-01-23] MEDS: predniSONE 20 MG TABLET (UD) PO ONE (12:25)
[2024-01-23 12:34] VITALS: BP 138/75; PULSE 88; RESP 17; TEMP 98.5; BMI 37.1
== END 2024-01-23 13:07 | disposition home or self-care (01) ==
LOC: FER 12:11
PROC: 3E0F7GC Introduction of Other Therapeutic Substance into Respiratory Tract, Via Natural or Artificial Opening (ICD-10-PCS; principal; 2024-01-23)
DX: R06.02 Shortness of breath (principal); J45.901 Unspecified asthma with (acute) exacerbation
CPT/HCPCS: 99283-25

== ENCOUNTER 2024-01-30 14:11 | Emergency (ER) | payer BC ==
[2024-01-30 14:31] VITALS: BP 115/83; PULSE 82; RESP 18; TEMP 98.3; BMI 37.1
== END 2024-01-30 16:25 | disposition home or self-care (01) ==
LOC: FER 14:11
DX: R05.9 Cough, unspecified (principal); R09.89 Other specified symptoms and signs involving the circulatory and respiratory systems; J10.1 Influenza due to other identified influenza virus with other respiratory manifestations; Z20.822 Contact with and (suspected) exposure to COVID-19
CPT/HCPCS: 0241U-QW; 71046-TC-FY